=== PATIENT | male | born 1940 | race Caucasian/White ===

== ENCOUNTER 2017-01-27 20:44 | Emergency (ER) | payer OTHER ==
[~2017-01-27] VITALS: Ht 175.3 cm; Wt 68.1 kg
[~2017-01-27 20:44] MED LIST: ALPRAZOLAM0.5 MG; AMBIEN10 MG PO; ASACOL HD800 MG PO; ASACOL400 MG PO; ASPIRIN81 M1 PO; ATORVASTATIN CA20 MG PO; Ambien PO; Asacol PO; CARDIZEM CD,CA120 MG PO; COMBIVENT INH14.7 GM IH; COMBIVENT RESPIM4 GM IH; COMBIVENT200 INHALA IH; CONSTULOSE10 GM/15 M PO; COZAAR50 MG PO; DESYREL100 MG PO; DESYREL12.5 MG; DICYCLOMINE HCL10 MG PO; Ecotrin PO; FLAGYL500 MG PO; HYDROCODON-ACE1 EAC7 PO; LEVOTHROID25 MCG PO; LIPITOR20 MG PO; LIPITOR40 MG PO; LO-DOSE ASPIRIN81 M1 PO; LOSARTAN POTASS50 MG PO; LOSARTAN-HCTZ1 EAC1 PO; Lopressor PO; METOPROLOL TAR100 MG PO; MOBIC15 MG PO; Micro-K,K-Tab,K-Dur, PO; Mobic PO; PANTOPRAZOLE SO40 MG PO; POTASSIUM CHLO10 ME3 PO; POTASSIUM CHLO20 ME1 PO; PRILOSEC20 MG PO; Plavix PO; REQUIP1 MG PO; TAMSULOSIN HCL0.4 MG PO; TRAZODONE HCL50 MG PO; VANCOCIN 250 M250 MG PO; VANCOCIN HCL125 MG PO; VANCOMYCIN HCL125 MG PO; Vancocin Oral Solution PO; WARFARIN SODIU7.5 MG PO; WELCHOL625 MG PO; XANAX0.5 MG PO; XIFAXAN550 MG PO; predniSONE PO
[2017-01-27 21:17] LABS: HEMATOCRIT 46.2 % (38.0-50.0); MCH 29.7 PG (29.0-34.0); MCHC 33.3 G/DL (30.0-36.0); MCV 89.2 FL (86-99); PLATELET COUNT 269 K/uL (156-360); RBC DIS.WIDTH-CV 14.1 % (11.8-14.6); RBC DIS.WIDTH-SD 45.2 % (39-53); RED BLOOD COUNT 5.18 M/uL (4.00-5.50); WHITE BLOOD COUNT 9.5 K/uL (4.1-10.2)
[2017-01-27 21:26] LABS: CHLORIDE 99 mEq/L (99-109); POTASSIUM 3.8 mEq/L (3.7-5.4); SODIUM 140 mEq/L (136-147)
[2017-01-27 21:28] LABS: GLUCOSE 128 mg/dL (70-99)
[2017-01-27 21:29] LABS: ANION GAP 14 MEQ/L (2-14)
[2017-01-27 21:30] LABS: TOTAL BILIRUBIN 0.8 mg/dL (0.0-1.0)
[2017-01-27 21:31] LABS: ALKALINE PHOSPHATASE 73 IU/L (3-129)
[2017-01-27 21:32] LABS: GFR ESTIMATE (CALCULATED) 39 mL/min/
[2017-01-27 21:33] LABS: UREA NITROGEN (BUN) 27 mg/dL (9-23)
[2017-01-27 21:34] LABS: ADD MIUA? YES; BILIRUBIN NEGATIVE; BLOOD SMALL; COLOR YELLOW ((YELLOW)); GLUCOSE (STRIP) NEGATIVE; KETONES NEGATIVE; LEUKOCYTES NEGATIVE; NITRITE NEGATIVE; PROTEIN (STRIP) 30; UROBILINOGEN 0.2 MG/DL (0.2-1.0)
[2017-01-27 21:47] LABS: BACTERIA NONE SEEN /HPF; EPITHELIAL CELLS RARE /HPF; GRANULAR CASTS 0-5 /LPF; MUCUS TRACE /LPF; RED BLOOD CELLS 0-5 /HPF (0-5); UCUL ADDED? NO; WHITE BLOOD CELLS 0-5 /HPF (0-5)
[2017-01-27 22:11] LABS: TROP-I INTERPRETATION NEGATIVE; TROPONIN-I 0.01 ng/mL (0.0-0.30)
[2017-01-28 03:02] VITALS: BP 154/95
== END 2017-01-28 03:03 | disposition short-term general hospital (02) ==
LOC: EME 20:44
PROVIDERS: Emergency Medicine
DX: K55.059 Acute (reversible) ischemia of intestine, part and extent unspecified (principal); I71.4 Abdominal aortic aneurysm, without rupture; J44.9 Chronic obstructive pulmonary disease, unspecified; E78.5 Hyperlipidemia, unspecified; I10 Essential (primary) hypertension; K21.9 Gastro-esophageal reflux disease without esophagitis; Z95.1 Presence of aortocoronary bypass graft; Z87.891 Personal history of nicotine dependence
CPT/HCPCS: 71020; 74176; 80053; 81003; 83605; 84484; 85027; 86850; 86900; 86901; 87040; 93005; 99281; 99285; J2060; J2270; J2405; J2543; J3370; J7120

== ENCOUNTER 2017-06-09 15:36 | Emergency (ER) | payer OTHER ==
[~2017-06-09] VITALS: Ht 170.2 cm; Wt 65.2 kg
[2017-06-09] MEDS ORDERED: OXYCODONE HCL15 MG PO (16:06)
[2017-06-09 16:20] VITALS: BP 108/78
== END 2017-06-09 16:21 | disposition home or self-care (01) ==
LOC: EME 15:36
DX: G89.29 Other chronic pain (principal); Z76.0 Encounter for issue of repeat prescription; Z95.1 Presence of aortocoronary bypass graft; Z87.891 Personal history of nicotine dependence; Z86.79 Personal history of other diseases of the circulatory system
CPT/HCPCS: 99281; 99283

== ENCOUNTER 2018-02-16 01:30 | Emergency (ER) | payer OTHER ==
[~2018-02-16] VITALS: Ht 172.7 cm; Wt 66.2 kg
[~2018-02-16 01:30] MED LIST changes: +OXYCODONE HCL15 MG PO
[2018-02-16 02:00] LABS: APPEARANCE CLEAR ((CLEAR)); BILIRUBIN NEGATIVE; BLOOD NEGATIVE; COLOR YELLOW ((YELLOW)); GLUCOSE (STRIP) NEGATIVE; KETONES NEGATIVE; LEUKOCYTES NEGATIVE; NITRITE NEGATIVE; PROTEIN (STRIP) 100; SPECIFIC GRAVITY 1.024 (1.000-1.030); UROBILINOGEN 0.2 MG/DL (0.2-1.0)
[2018-02-16 02:02] LABS: HEMATOCRIT 44.2 % (38.0-50.0); HEMOGLOBIN 14.6 G/DL (12.5-16.6); MCH 30.9 PG (29.0-34.0); MCV 93.6 FL (86-99); PLATELET COUNT 166 K/uL (156-360); RBC DIS.WIDTH-CV 13.7 % (11.8-14.6); RED BLOOD COUNT 4.72 M/uL (4.00-5.50); WHITE BLOOD COUNT 8.3 K/uL (4.1-10.2)
[2018-02-16 02:05] LABS: BACTERIA NONE SEEN /HPF; EPITHELIAL CELLS NONE SEEN /HPF; HYALINE CASTS 0-5 /LPF; MUCUS NONE SEEN /LPF; RED BLOOD CELLS 0-5 /HPF (0-5); UCUL ADDED? NO; WHITE BLOOD CELLS 0-5 /HPF (0-5)
[2018-02-16 02:12] LABS: ALBUMIN 4.4 g/dL (3.2-4.8); CHLORIDE 108 mEq/L (99-109); POTASSIUM 4.7 mEq/L (3.7-5.4); SODIUM 143 mEq/L (136-147)
[2018-02-16 02:14] LABS: GLUCOSE 109 mg/dL (70-99); TOTAL PROTEIN 7.5 g/dL (6.4-8.3)
[2018-02-16 02:17] LABS: TOTAL BILIRUBIN 0.5 mg/dL (0.0-1.0)
[2018-02-16 02:18] LABS: ALKALINE PHOSPHATASE 113 IU/L (3-129); CREATININE 1.3 mg/dL (0.6-1.3); GFR ESTIMATE (CALCULATED) 57 mL/min/ (58.99-99999)
[2018-02-16 02:19] LABS: UREA NITROGEN (BUN) 37 mg/dL (9-23)
[2018-02-16 02:20] LABS: AST (GOT) 15 IU/L (2-34)
[2018-02-16 02:21] LABS: ALT (GPT) 9 IU/L (3-49); LIPASE 37 U/L (1.0-51.0)
[2018-02-16 04:45] VITALS: BP 173/89
== END 2018-02-16 04:56 | disposition home or self-care (01) ==
LOC: EME 01:30
DX: R10.9 Unspecified abdominal pain (principal); I71.4 Abdominal aortic aneurysm, without rupture; K59.00 Constipation, unspecified; M47.896 Other spondylosis, lumbar region; I10 Essential (primary) hypertension; J44.9 Chronic obstructive pulmonary disease, unspecified; E78.5 Hyperlipidemia, unspecified; I48.91 Unspecified atrial fibrillation; K21.9 Gastro-esophageal reflux disease without esophagitis; F41.9 Anxiety disorder, unspecified; F32.9 Major depressive disorder, single episode, unspecified; Z87.891 Personal history of nicotine dependence; Z95.1 Presence of aortocoronary bypass graft; Z85.9 Personal history of malignant neoplasm, unspecified; Z87.19 Personal history of other diseases of the digestive system
CPT/HCPCS: 74176; 80053; 81003; 83690; 85027; 99281; 99284; J2270